=== PATIENT | female | born 1995 | race African-American/Black ===

== ENCOUNTER 2024-06-17 13:25 | Emergency (ER) | payer MEDICAID ==
[~2024-06-17] VITALS: Ht 165.1 cm; Wt 90.0 kg
[2024-06-17 13:27] VITALS: BP 129/95; PULSE 101; TEMP 98.5; O2SAT 98
[2024-06-17] MEDS: IBUPROFEN 600MG TABLET PO ONE (15:20)
[2024-06-17 16:00] VITALS: RESP 16; O2SAT 100
== END 2024-06-17 16:00 | disposition home or self-care (01) ==
LOC: ER 13:25
DX: S50.11XA Contusion of right forearm, initial encounter (principal); Y04.0XXA Assault by unarmed brawl or fight, initial encounter; Y93.89 Activity, other specified; Y92.89 Other specified places as the place of occurrence of the external cause; Y99.8 Other external cause status
CPT/HCPCS: 99283